=== PATIENT | female | born 1965 | race Caucasian/White ===

== ENCOUNTER 2016-10-13 00:02 | Emergency (ER) | payer OTHER ==
[~2016-10-13] VITALS: Ht 165.1 cm; Wt 66.0 kg
[2016-10-13] MEDS ORDERED: AUGMENTIN875 MG PO (01:33)
[2016-10-13 02:15] VITALS: BP 145/71
== END 2016-10-13 02:13 | disposition home or self-care (01) ==
LOC: EXP 00:02 → EME 00:02 → EXP 02:13
PROC: 3E0234Z Introduction of Serum, Toxoid and Vaccine into Muscle, Percutaneous Approach (ICD-10-PCS; principal; 2016-10-13)
DX: S61.210A Laceration without foreign body of right index finger without damage to nail, initial encounter (principal); Z23 Encounter for immunization; W54.0XXA Bitten by dog, initial encounter
CPT/HCPCS: 99281; 99284